=== PATIENT | male | born 1990 | race Caucasian/White ===

== ENCOUNTER 2020-12-03 19:30 | Outpatient (CLI) | payer BC | END 2020-12-03 19:31 | disposition home or self-care (01) | LOC: SLEEPLAB 19:30 | PROVIDERS: ATTEND Registered Nurse | DX: G47.33 Obstructive sleep apnea (adult) (pediatric) (principal); R06.83 Snoring; G47.10 Hypersomnia, unspecified; G47.00 Insomnia, unspecified; E66.9 Obesity, unspecified; Z68.39 Body mass index [BMI] 39.0-39.9, adult | CPT/HCPCS: 95811 ==

== ENCOUNTER 2021-04-05 15:32 | Inpatient (IN) | payer BC ==
[2021-04-05 16:32] LABS: #Lymphocytes 1.1 thou/uL (1.20-3.40); #Monocytes 0.3 thou/uL (0.11-0.59); #Neutrophils 2.2 thou/uL (1.40-6.50); %Basophils 0.6 % (0.0-1.0); %Eosinophils 1.2 % (0.0-10.0); %Lymphocytes 30.9 % (21.0-51.0); %Monocytes 7.9 % (0.0-10.0); %Neutrophils 59.5 % (42.0-75.0); Hemoglobin 14.8 g/dL (14.0-18.0); Mean Corpuscular HGB CONC 34.3 g/dL (32.0-36.0); Mean Corpuscular Hemoglobin 30.8 pg (27.0-31.0); Mean Corpuscular Volume 89.8 fL (78.0-98.0); Platelet Count 161 thou/uL (130-400); RBC Distribution Width 11.8 % (11.5-14.5); Red Blood Cell (RBC) Count 4.81 mill/uL (4.70-6.10); White Blood Cell (WBC) Count 3.7 thou/uL (4.8-10.8)
[2021-04-05 16:44] LABS: MONO NEGATIVE CONTROL ZONE White (Negative) (White); MONO POSITIVE CONTROL Pink Line (Positive) (PINK/RED); Mononucleosis NEGATIVE (NEGATIVE)
[2021-04-05 16:46] LABS: ALT (SGPT) 423 U/L (8-55); AST (SGOT) 131 U/L (5-34); Albumin 3.3 g/dL (3.5-5.0); Alkaline Phosphatase 55 U/L (40-110); Anion Gap 13 mmol/L (10-20); BUN (Urea Nitrogen) 11 mg/dL (8.9-20.6); Bilirubin, Direct 4.8 mg/dL (0.1-0.3); Bilirubin, Total 6.5 mg/dL (0.2-1.2); Calc. Creatinine Clearance 0 mL/min (70-130); Calcium 8.5 mg/dL (7.8-10.44); Carbon Dioxide 24 mmol/L (22-29); Chloride 102 mmol/L (98-107); Glucose 95 mg/dL (70-105); Lipase 76 U/L (8-78); Potassium 3.7 mmol/L (3.5-5.1); Protein, Total 6.6 g/dL (6.0-8.3); Sodium 135 mmol/L (136-145)
[2021-04-05 17:05] LABS: HBCM Index 0.07 S/CO (0-0.79); HBSAg Index 0.39 S/CO (0-0.99); Hep A IgM AB Non-Reactive (NonReactive); Hep A IgM S/CO 0.13 S/CO (0-0.79); Hep B Surf Ag Non-Reactive S/CO (NonReactive); Hep C IgG Ab Non-Reactive (NonReactive); Hepatitis B Core IgM Abs Non-Reactive (NonReactive)
[2021-04-05] MEDS ORDERED: Famotidine/PF 20 mg/2ml Vial ONE (17:10)
[2021-04-05] MEDS ORDERED: Ketorolac Tromethamine 30 MG/ML VIAL ONE (17:10)
[2021-04-05] MEDS ORDERED: Metoclopramide HCl 10 MG/2 ML VIAL ONE (17:10)
[2021-04-05] MEDS ORDERED: Senokot S 8.6-50 MG TAB PO PRN (18:25)
[2021-04-05] MEDS ORDERED: Calcium Carbonate 500 MG ChewTAB PO PRN (18:25)
[2021-04-05] MEDS ORDERED: Ondansetron PF 4 MG/2 ML Vial IVP PRN (18:25)
[2021-04-05] MEDS ORDERED: Ondansetron ODT 4 MG TAB PO PRN (18:25)
[2021-04-05 18:35] LABS: Acetaminophen Less than 6.0 mcg/mL (10.0-30.0); CK (CPK) 31 U/L (30-200); Iron Binding Capacity, Total 228 mcg/dL (261-462)
[2021-04-05 18:36] LABS: PTT 29.3 sec (22.9-36.1); Prothrombin Time 13.5 sec (12.0-14.7)
[2021-04-05 18:42] LABS: Ferritin 1384.53 ng/mL (22-322); Thyroid Stimulating Hormone 1.5774 uIU/mL (0.35-4.94)
[2021-04-05] MEDS: Sodium Chloride 0.9% 1,000 ML IV SCH (20:00)
[2021-04-05] MEDS: Pantoprazole 40 MG VIAL IVP SCH (20:01)
[2021-04-05] MEDS ORDERED: Ibuprofen 200 MG TAB PO PRN (22:00)
[2021-04-06 00:46] VITALS: BMI 38.5
[2021-04-06] MEDS ORDERED: FLU VACC QS2021-22(6MOS UP)/PF 60 MCG/0.5 ML SYRINGE IM ONE (01:00)
[2021-04-06] MEDS: Sodium Chloride 0.9% 1,000 ML IV SCH ×4 (03:02→21:49)
[2021-04-06 06:48] LABS: #Eosinphils 0.1 thou/uL (0.0-0.7); #Lymphocytes 1.6 thou/uL (1.20-3.40); #Monocytes 0.3 thou/uL (0.11-0.59); #Neutrophils 1.3 thou/uL (1.40-6.50); %Basophils 1.4 % (0.0-1.0); %Eosinophils 2.4 % (0.0-10.0); %Lymphocytes 46.9 % (21.0-51.0); %Monocytes 8.9 % (0.0-10.0); %Neutrophils 40.5 % (42.0-75.0); Hemoglobin 13.8 g/dL (14.0-18.0); Mean Corpuscular Hemoglobin 30.7 pg (27.0-31.0); Mean Corpuscular Volume 90.3 fL (78.0-98.0); Mean Platelet Volume 7.6 fL (7.4-10.4); Platelet Count 166 thou/uL (130-400); RBC Distribution Width 11.8 % (11.5-14.5); Red Blood Cell (RBC) Count 4.52 mill/uL (4.70-6.10); White Blood Cell (WBC) Count 3.3 thou/uL (4.8-10.8)
[2021-04-06 06:55] LABS: Prothrombin Time 12.9 sec (12.0-14.7)
[2021-04-06 07:09] LABS: ALT (SGPT) 332 U/L (8-55); AST (SGOT) 114 U/L (5-34); Alkaline Phosphatase 61 U/L (40-110); Anion Gap 11 mmol/L (10-20); BUN (Urea Nitrogen) 10 mg/dL (8.9-20.6); Bilirubin, Total 4.9 mg/dL (0.2-1.2); Calc. Creatinine Clearance 229 mL/min (70-130); Calcium 8.1 mg/dL (7.8-10.44); Carbon Dioxide 23 mmol/L (22-29); Chloride 107 mmol/L (98-107); Glucose 89 mg/dL (70-105); Iron 122 ug/dL (65-175); Iron Binding Capacity, Total 235 mcg/dL (261-462); Potassium 3.7 mmol/L (3.5-5.1); Sodium 137 mmol/L (136-145)
[2021-04-06 07:27] LABS: HBSAB Concentration Less than 8.00 mIU/mL; Hep B Surf AB Non-Reactive (NonReactive)
[2021-04-06] MEDS: Pantoprazole 40 MG VIAL IVP SCH ×2 (11:19→21:43)
[2021-04-06 21:03] LABS: SARS-CoV-2 PCR by NAA Not Detected (NotDetected)
[2021-04-07 07:00] LABS: Hemoglobin 13.1 g/dL (14.0-18.0); Mean Corpuscular HGB CONC 33.6 g/dL (32.0-36.0); Mean Corpuscular Hemoglobin 30.7 pg (27.0-31.0); Mean Corpuscular Volume 91.3 fL (78.0-98.0); Mean Platelet Volume 7.6 fL (7.4-10.4); Platelet Count 169 thou/uL (130-400); RBC Distribution Width 11.9 % (11.5-14.5); Red Blood Cell (RBC) Count 4.27 mill/uL (4.70-6.10); White Blood Cell (WBC) Count 3.7 thou/uL (4.8-10.8)
[2021-04-07 07:17] LABS: ALT (SGPT) 265 U/L (8-55); AST (SGOT) 86 U/L (5-34); Albumin 2.9 g/dL (3.5-5.0); Alkaline Phosphatase 68 U/L (40-110); Anion Gap 8 mmol/L (10-20); BUN (Urea Nitrogen) 8 mg/dL (8.9-20.6); Bilirubin, Total 2.3 mg/dL (0.2-1.2); Calc. Creatinine Clearance 226 mL/min (70-130); Calcium 8.1 mg/dL (7.8-10.44); Carbon Dioxide 25 mmol/L (22-29); Chloride 109 mmol/L (98-107); Globulin 2.9 g/dL (2.4-3.5); Glucose 98 mg/dL (70-105); Protein, Total 5.8 g/dL (6.0-8.3); Sodium 138 mmol/L (136-145)
[2021-04-07] MEDS: Sodium Chloride 0.9% 1,000 ML IV SCH ×2 (07:38→10:05)
[2021-04-07] MEDS: Pantoprazole 40 MG VIAL IVP SCH (10:07)
[2021-04-07 11:30] LABS: Band 4 % (5-11); Eosinophils 4 % (0-10); Lymphocytes 51 % (21-51); MDiff Complete? YES; Monocytes 11 % (0-10); Neutrophil 29 % (42-75); Platelet Morphology Comment Appears Adequate; Polychromasia SLIGHT = 2-3 cells (100X) (0-2/hpf); Reactive Lymphocytes 1 % (0-10)
[2021-04-07 11:58] VITALS: BP 108/72; TEMP 98.2
[2021-04-08 11:14] LABS: EBV VCA IgM <36.0 U/mL (0.0-35.9)
[2021-04-08 12:14] LABS: Smooth Muscle Total ABS 5 Units (0-19)
[2021-04-08 17:09] LABS: Hep C PCR-Quant HCV Not Detected IU/mL (.)
[2021-04-09 12:37] LABS: CMV DNA-PCR Test Negative (Negative)
[2021-04-10 08:39] LABS: HSV 1 - DNA Negative (Negative); HSV 2 - DNA Negative (Negative)
== END 2021-04-07 15:02 | disposition home or self-care (01) | DRG 866 ==
LOC: ERS 15:32 → SJJU 18:09
PROVIDERS: ADMIT Internal Medicine; ATTEND Internal Medicine
DX: B34.9 Viral infection, unspecified (principal); E87.1 Hypo-osmolality and hyponatremia; R79.89 Other specified abnormal findings of blood chemistry; K76.0 Fatty (change of) liver, not elsewhere classified; K80.50 Calculus of bile duct without cholangitis or cholecystitis without obstruction; Z20.822 Contact with and (suspected) exposure to COVID-19; G47.33 Obstructive sleep apnea (adult) (pediatric); E66.9 Obesity, unspecified; F41.9 Anxiety disorder, unspecified; F32.A Depression, unspecified; E86.0 Dehydration; Z99.81 Dependence on supplemental oxygen; Z68.38 Body mass index [BMI] 38.0-38.9, adult
CPT/HCPCS: 36415; 76705; 80048; 80053; 80074; 80076; 80143; 81256; 82103; 82104; 82390; 82550; 82728; 83516; 83540; 83550; 83690; 84443; 85025; 85610; 85730; 86038; 86225; 86308; 86664; 86665; 86706; 86709; 86790; 87497; 87522; 87529; 93005; 96365; 96366; 96375; 80307; C9113; J1885; J2765; J7050; S0028; U0003; U0005

== ENCOUNTER 2021-04-18 12:53 | Outpatient (CLI) | payer BC | END 2021-04-18 12:54 | disposition home or self-care (01) | LOC: SCSMRI 12:53 | PROVIDERS: ATTEND Registered Nurse | DX: M54.50 Low back pain, unspecified (principal); M51.27 Other intervertebral disc displacement, lumbosacral region | CPT/HCPCS: 72148 ==